=== PATIENT | female | born 1990 | race Caucasian/White ===

== ENCOUNTER 2018-07-10 10:27 | Inpatient (IN) | payer MEDICAID, OTHER ==
[~2018-07-10] VITALS: Ht 157.5 cm; Wt 66.6 kg
[~2018-07-10 10:27] MED LIST: RISP2 PO
[2018-07-10 11:08] LABS: BASOPHILS % (AUTO) 0.4 % (0.0-2.0); EOSINOPHILS % (AUTO) 0 % (1.0-6.0); HEMATOCRIT 42.5 % (36-46); HEMOGLOBIN 14.6 g/dL (12.0-16.0); LYMPHOCYTES % (AUTO) 10.9 % (22.0-44.0); MEAN CORPUSCULAR HEMOGLOBIN 30.1 pg (26.0-34.0); MEAN CORPUSCULAR HGB CONC 34.3 G/dL (31.0-37.0); MEAN CORPUSCULAR VOLUME 88 fL (80-100); MONOCYTES # (AUTO) 0.4 K/uL (0.1-1.0); MONOCYTES % (AUTO) 4.1 % (2.0-9.0); NEUTROPHILS # (AUTO) 7.8 K/uL (1.8-7.7); NEUTROPHILS % (AUTO) 84.6 % (40.0-70.0); PLATELET COUNT (AUTO) 349 K/uL (150-450); RED BLOOD CELL COUNT(AUTO) 4.85 MIL/uL (4.00-5.20); RED CELL DISTRIBUTION WIDTH 13.6 % (11.5-14.5)
[2018-07-10 11:35] LABS: ANION GAP 15 mmol/L (8-16); CALCIUM, TOTAL 9.1 mg/dL (8.8-10.5); CARBON DIOXIDE 24 mmol/L (22-29); CHLORIDE 101 mmol/L (98-107); GLOMERULAR FILTR. RATE CALC 53 mL/min (>60); GLUCOSE,RANDOM 144 mg/dL (70-110); POTASSIUM 3.4 mmol/L (3.5-5.1); SODIUM SERUM 140 mmol/L (136-145); UREA NITROGEN, BLOOD 18 mg/dL (7-18)
[2018-07-10 11:40] LABS: ALANINE AMINOTRANSFERASE 16 U/L (12-78); ALBUMIN 4.5 g/dL (3.4-5.0); ALKALINE PHOSPHATASE 75 U/L (46-116); ASPARTATE AMINOTRANSFERASE 13 U/L (15-37); BILIRUBIN,TOTAL 0.4 mg/dL (0.1-1.0); TOTAL PROTEIN, SERUM 8.9 g/dL (6.4-8.2)
[2018-07-10] MEDS ORDERED: DiphenhydrAMINE HCL 50 MG/ML VIAL IM ONE ×2 (11:45→13:30)
[2018-07-10] MEDS ORDERED: LORazepam 2 MG/ML VIAL IM ONE ×2 (11:45→13:30)
[2018-07-10] MEDS ORDERED: HALOPERIDOL LACTATE 5 MG/ML VIAL IM ONE ×2 (11:45→13:30)
[2018-07-10] MEDS ORDERED: LORazepam 2 MG TABLET PO ONE (12:00)
[2018-07-10] MEDS ORDERED: DiphenhydrAMINE HCL 25 MG CAPSULE PO ONE (12:00)
[2018-07-10] MEDS ORDERED: HALOPERIDOL 5 MG TABLET PO ONE (12:00)
[2018-07-10] MEDS ORDERED: LORazepam 2 MG/ML VIAL ONE (12:02)
[2018-07-10] MEDS ORDERED: HALOPERIDOL LACTATE 5 MG/ML VIAL ONE (12:02)
[2018-07-10] MEDS ORDERED: DiphenhydrAMINE HCL 50 MG/ML VIAL ONE (12:02)
[2018-07-10 12:27] LABS: AMPHET/METH SCREEN,URINE NEGATIVE (NEGATIVE); BARBITURATE SCREEN, URINE NEGATIVE (NEGATIVE); BENZODIAZEPINES SCREEN,URINE NEGATIVE (NEGATIVE); CANNABINOID SCREEN,URINE POSITIVE (NEGATIVE); COCAINE SCREEN,URINE NEGATIVE (NEGATIVE); METHADONE SCREEN, URINE NEGATIVE (NEGATIVE); OPIATE SCREEN,URINE NEGATIVE (NEGATIVE)
[2018-07-10 12:29] LABS: PHENCYCLIDINE SCREEN,URINE NEGATIVE (NEGATIVE)
[2018-07-10] MEDS ORDERED: HALOPERIDOL 5 MG TABLET PO PRN (16:00)
[2018-07-10] MEDS ORDERED: ZOLPIDEM TARTRATE 10 MG TABLET PO PRN (16:00)
[2018-07-10] MEDS ORDERED: LORazepam 2 MG TABLET PO PRN (16:00)
[2018-07-10 20:09] VITALS: BP 122/78
[2018-07-10] MEDS ORDERED: POTASSIUM CHLORIDE 20 MEQ ER TABLET PO ONE (20:15)
[2018-07-10] MEDS ORDERED: LOPERAMIDE HCL 2 MG CAPSULE PO PRN (23:30)
[2018-07-10] MEDS ORDERED: MAG HYDROX/AL HYDROX/SIMETH ES 30 ML SUSPENSION UDCUP PO PRN (23:30)
[2018-07-10] MEDS ORDERED: ONDANSETRON HCL 4 MG TABLET PO PRN (23:30)
[2018-07-10] MEDS ORDERED: IBUPROFEN 400 MG TABLET PO PRN (23:30)
[2018-07-10] MEDS ORDERED: ALBUTEROL SULFATE HFA 90 MCG/PUFF 8 GM INHALER IH PRN (23:30)
[2018-07-10] MEDS ORDERED: NICOTINE 14 MG/24 HOUR PATCH TD PRN (23:30)
[2018-07-10] MEDS ORDERED: CloNIDine HCL 0.1 MG TABLET PO PRN (23:30)
[2018-07-10] MEDS ORDERED: GuaiFENesin/D-METHORPHAN [SUGAR-FREE] 200-20MG/10 ML SYRUP UDCUP PO PRN (23:30)
[2018-07-10] MEDS ORDERED: PETROLATUM,WHITE 71 GM JELLY TP PRN (23:30)
[2018-07-10] MEDS ORDERED: ACETAMINOPHEN 325 MG TABLET PO PRN (23:30)
[2018-07-10] MEDS ORDERED: DOCUSATE SODIUM 100 MG CAPSULE PO PRN (23:30)
[2018-07-10] MEDS ORDERED: MAGNESIUM HYDROXIDE SUSPENSION 30 ML UDCUP PO PRN (23:30)
[2018-07-11 05:54] VITALS: BP 118/68
[2018-07-11 09:11] VITALS: BP 121/68
[2018-07-11 09:11] LABS: FREE T4 (FREE THYROXINE) 1.02 ng/dL (0.76-1.46); POTASSIUM 3.9 mmol/L (3.5-5.1); THYROID STIMULATING HORMONE 0.73 uIU/mL (0.36-3.74)
[2018-07-11 16:35] VITALS: BP 127/69
[2018-07-11] MEDS ORDERED: RisperiDONE 1 MG TABLET PO SCH (17:00)
[2018-07-12 00:46] VITALS: BP 121/69
[2018-07-12 08:27] VITALS: BP 127/79
[2018-07-12] MEDS: RisperiDONE 2 MG TABLET PO SCH ×2 (08:44→16:18)
[2018-07-12 16:06] VITALS: BP 126/65
[2018-07-13 08:14] VITALS: BP 127/67
[2018-07-13] MEDS: RisperiDONE 2 MG TABLET PO SCH ×2 (10:12→16:06)
[2018-07-13 16:14] VITALS: BP 114/66
[2018-07-14 06:33] VITALS: BP 118/67
[2018-07-14 08:13] VITALS: BP 131/65
[2018-07-14] MEDS: RisperiDONE 2 MG TABLET PO SCH ×2 (08:31→16:09)
[2018-07-14] MEDS ORDERED: RISP2 PO (10:32)
[2018-07-14 16:10] VITALS: BP 126/70
== END 2018-07-14 18:16 | disposition home or self-care (01) | DRG 750 ==
LOC: EMS 10:28 → B2S 17:35
PROVIDERS: ADMIT Psychiatry & Neurology Psychiatry; ATTEND Psychiatry & Neurology Psychiatry
DX: F25.0 Schizoaffective disorder, bipolar type (principal); Z91.14 Patient's other noncompliance with medication regimen; E87.6 Hypokalemia; F10.10 Alcohol abuse, uncomplicated; F12.10 Cannabis abuse, uncomplicated; J45.909 Unspecified asthma, uncomplicated; F41.9 Anxiety disorder, unspecified; Z91.19 Patient's noncompliance with other medical treatment and regimen; Z81.8 Family history of other mental and behavioral disorders
CPT/HCPCS: 84132; 84439; 84443; 90686; 96372; G0480; J1200; J1630; J2060

== ENCOUNTER 2018-07-18 15:01 | Emergency (ER) | payer MEDICAID, OTHER ==
[~2018-07-18] VITALS: Ht 160 cm; Wt 68.2 kg
[2018-07-18] MEDS ORDERED: LORazepam 2 MG TABLET PO ONE (15:45)
[2018-07-18 16:15] LABS: BASOPHILS % (AUTO) 0.3 % (0.0-2.0); EOSINOPHILS % (AUTO) 0.4 % (1.0-6.0); HEMATOCRIT 37.8 % (36-46); HEMOGLOBIN 12.9 g/dL (12.0-16.0); LYMPHOCYTES # (AUTO) 2.2 K/uL (1.0-4.8); LYMPHOCYTES % (AUTO) 38.8 % (22.0-44.0); MEAN CORPUSCULAR HEMOGLOBIN 29.6 pg (26.0-34.0); MEAN CORPUSCULAR VOLUME 87 fL (80-100); MONOCYTES # (AUTO) 0.5 K/uL (0.1-1.0); MONOCYTES % (AUTO) 9.3 % (2.0-9.0); NEUTROPHILS # (AUTO) 2.9 K/uL (1.8-7.7); NEUTROPHILS % (AUTO) 51.2 % (40.0-70.0); PLATELET COUNT (AUTO) 291 K/uL (150-450); RED BLOOD CELL COUNT(AUTO) 4.34 MIL/uL (4.00-5.20); RED CELL DISTRIBUTION WIDTH 13.3 % (11.5-14.5)
[2018-07-18 16:26] LABS: ANION GAP 6 mmol/L (8-16); CALCIUM, TOTAL 8.3 mg/dL (8.8-10.5); CARBON DIOXIDE 28 mmol/L (22-29); CHLORIDE 103 mmol/L (98-107); CREATININE 0.65 mg/dL (0.60-1.30); GLOMERULAR FILTR. RATE CALC > 60 mL/min (>60); GLUCOSE,RANDOM 112 mg/dL (70-110); SODIUM SERUM 137 mmol/L (136-145); UREA NITROGEN, BLOOD 11 mg/dL (7-18)
[2018-07-18 16:36] LABS: ALANINE AMINOTRANSFERASE 21 U/L (12-78); ALBUMIN 3.7 g/dL (3.4-5.0); ALKALINE PHOSPHATASE 61 U/L (46-116); ASPARTATE AMINOTRANSFERASE 13 U/L (15-37); BILIRUBIN,TOTAL 0.1 mg/dL (0.1-1.0); TOTAL PROTEIN, SERUM 7.3 g/dL (6.4-8.2)
[2018-07-18 16:51] VITALS: BP 107/59
[2018-07-18 16:54] LABS: HCG,QUANTITATIVE < 1 mIU/mL (0-6)
== END 2018-07-18 17:37 | disposition home or self-care (01) ==
LOC: EMS 15:02
DX: F32.9 Major depressive disorder, single episode, unspecified (principal); F41.9 Anxiety disorder, unspecified; R07.89 Other chest pain; F20.9 Schizophrenia, unspecified; J45.909 Unspecified asthma, uncomplicated; F12.90 Cannabis use, unspecified, uncomplicated; F19.90 Other psychoactive substance use, unspecified, uncomplicated
CPT/HCPCS: 36415; 71045; 80053; 84484; 84702; 93005; 85025; 99285; G0480